=== PATIENT | female | born 2005 | race Caucasian/White ===

== ENCOUNTER 2024-06-24 01:13 | Inpatient (IN) ==
--- NOTE | 2024-06-24 01:39 | Emergency Department Note ---
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 Patient states when she takes deep breath it hurts on the right side. Patient denies vomiting, diarrhea, abdominal pain, urinary symptoms, sore throat. She states she is healthy and takes no active medicines. She has had left humeral surgery before for bone swelling. Patient was not able to elaborate on this. This was 6 years ago. Allergies Allergy/AdvReac Type Severity Reaction Status Date / Time No Known Allergies Allergy Unverified 06/24/24 05:35 Past Med/Surg History Problem List Pyelonephritis (Acute) Social History Smoking Status: Never smoker Feels Safe at Home: Yes Review of Systems A total of 10 systems reviewed and were otherwise negative Physical Exam Vital Signs Vital Signs - 24 hr 06/24/24 01:15 06/24/24 02:04 06/24/24 03:27 Temperature 37.7 C H Temperature Source Oral Pulse Rate 88 72 Pulse Rate [Left] 77 Pulse Rhythm Regular Pulse Rhythm [Left] Regular Pulse Strength [Left] Normal Respiratory Rate 16 16 Respiratory Effort / Characteristics Non-Labored Spontaneous Respiratory Depth Normal Respiratory Pattern Regular Blood Pressure 120/76 Blood Pressure [Right Arm] 114/66 Blood Pressure Mean 90 Blood Pressure Mean [Right Arm] 82 Blood Pressure Position [Right Arm] Sitting Pulse Oximetry 100 98 99 Oxygen Delivery Method Room Air Room Air Room Air Sepsis Recent Fever Within 48 Hours Yes Sepsis New/Unexplained Change in Mental Status No Sepsis Action Taken by Nursing No Action Required 06/24/24 04:00 06/24/24 05:17 Temperature 37.2 C Temperature Source Oral Pulse Rate Pulse Rate [Left] 51 L Pulse Rhythm Pulse Rhythm [Left] Regular Regular Pulse Strength [Left] Normal Normal Respiratory Rate 12 16 Respiratory Effort / Characteristics Non-Labored Spontaneous Non-Labored Spontaneous Respiratory Depth Normal Normal Respiratory Pattern Regular Regular Blood Pressure Blood Pressure [Right Arm] 106/59 L 99/63 L Blood Pressure Mean Blood Pressure Mean [Right Arm] 74 75 Blood Pressure Position [Right Arm] Lying Lying Pulse Oximetry 96 99 Oxygen Delivery Method Room Air Room Air Sepsis Recent Fever Within 48 Hours Sepsis New/Unexplained Change in Mental Status Sepsis Action Taken by Nursing VITALS: Vitals are noted on the nurse's note and reviewed by myself. Vital signs low-grade fever. GENERAL: Pleasant patient, in no acute distress, nondiaphoretic, well-developed well-nourished. SKIN: The skin was without rashes, erythema, edema, or bruising. There is no tenting of the skin. Capillary reflex less than 2 seconds. HEAD: Normocephalic atraumatic. EARS: External auditory canals clear EYES: Pupils equal round and reactive to light and accommodation. Conjunctivae without injection, sclerae without icterus. Extraocular movements intact. NOSE: Patent, no discharge. MOUTH: Mucous membranes moist. Pharynx without erythema or exudate. Uvula midline. Airway patent. Tongue does not deviate. NECK: Supple without nuchal rigidity. No lymphadenopathy. No thyromegaly. Cervical spine is nontender. No JVD. HEART: Regular rate and rhythm LUNGS: Clear to auscultation bilaterally without wheezes, rales or rhonchi. No retractions or accessory muscle use. ABDOMEN: Positive bowel sounds x 4. Normal tympanic percussion. Soft, nontender, without masses or organomegaly. Martinez sign negative. No guarding or rebound tenderness. No CVA tenderness MUSCULOSKELETAL: No muscle atrophy, erythema, or edema noted. No thoracic or lumbar tenderness. NEURO: Patient was alert and oriented to person place and time. Normal sensation to light and sharp touch. No focal neurological deficits. Course Administered Medications Sodium Chloride (Nss) 500 mls @ 999 mls/hr IV .Q31M ONE Stop: 06/24/24 05:45 Last Admin: 06/24/24 05:30 Dose: 999 mls/hr Documented By: [facility] Discontinued Medications Acetaminophen (Acetaminophen 500 Mg Tab) 1,000 mg PO NOW STA Stop: 06/24/24 01:37 Last Admin: 06/24/24 01:52 Dose: 1,000 mg Documented By: CARLOS Ceftriaxone Sodium (Rocephin) 1,000 mg in 50 mls @ 100 mls/hr IV NOW STA Stop: 06/24/24 02:44 Last Infusion: 06/24/24 03:25 Dose: Infused Documented By: Admin: 06/24/24 02:36 Dose: 100 mls/hr Documented By: CARLOS Sodium Chloride (Nss) 1,000 mls @ 999 mls/hr IV .Q1H1M ONE Stop: 06/24/24 05:33 Last Admin: 06/24/24 04:58 Dose: 999 mls/hr Documented By: CARLOS Piperacillin Sod/Tazobactam Sod (Zosyn) 4.5 gm in 100 mls @ 200 mls/hr IV NOW ONE; Protocol Stop: 06/24/24 05:12 Last Infusion: 06/24/24 05:27 Dose: Infused Documented By: Admin: 06/24/24 04:57 Dose: 200 mls/hr Documented By: CARLOS Ioversol (Optiray 320 100ml) 90 ml IV ONCE ONE Stop: 06/24/24 03:19 Last Admin: 06/24/24 03:19 Dose: 90 ml Documented By: HANNA Potassium Chloride (Potassium Chloride Crtab 20 Meq Tabcr) 40 meq PO NOW STA Stop: 06/24/24 04:13 Last Admin: 06/24/24 04:57 Dose: 40 meq Documented By: CARLOS Medical Decision Making Medical Records Attestation: I reviewed the patient's medical records. Home Medications Current Medication List: was personally reviewed by me Laboratory Data Attestation: I reviewed the patient's lab results. 06/24/24 03:13 06/24/24 03:13 Lab Results 06/24/24 06/24/24 06/24/24 Range/Units 01:54 02:28 03:13 WBC Cancelled 9.91 RBC Cancelled 3.51 L Hgb Cancelled 10.5 L Hct Cancelled 31.7 L MCV Cancelled 90.3 MCH Cancelled 29.9 MCHC Cancelled 33.1 RDW Std Deviation Cancelled 43.1 RDW Coeff of Deisy Cancelled 13.2 Plt Count Cancelled 286 MPV Cancelled 10.2 Immature Gran % (Auto) Cancelled 0.7 Neut % (Auto) Cancelled 72.1 Lymph % (Auto) Cancelled 16.4 Hood % (Auto) Cancelled 9.7 Eos % (Auto) Cancelled 0.8 Baso % (Auto) Cancelled 0.3 Neut # (Auto) Cancelled 7.14 H Lymph # (Auto) Cancelled 1.63 Hood # (Auto) Cancelled 0.96 H Eos # (Auto) Cancelled 0.08 Baso # (Auto) Cancelled 0.03 Immature Gran # (Auto) Cancelled 0.07 Absolute Nucleated RBC Cancelled Nucleated RBC % (auto) Cancelled Neutrophils % (Manual) Cancelled Band Neutrophils % Cancelled Lymphocytes % (Manual) Cancelled Prolymphocyte % Cancelled Reactive Lymphs % (Man) Cancelled Monocytes % (Manual) Cancelled Eosinophils % (Manual) Cancelled Basophils % (Manual) Cancelled Metamyelocytes % (Man) Cancelled Myelocytes % (Man) Cancelled Promyelocytes % (Man) Cancelled Blast Cells % (Manual) Cancelled Plasma Cell % (Manual) Cancelled Other Cells % Cancelled Nucleated RBC % Cancelled Neutrophils # (Manual) Cancelled Band Neutrophils # Cancelled Total Absolute Neuts Cancelled Lymphocytes # (Manual) Cancelled Prolymphocyte # Cancelled Reactive Lymphs # Cancelled Total Abs Lymphocytes Cancelled Monocytes # (Manual) Cancelled Eosinophils # (Manual) Cancelled Basophils # (Manual) Cancelled Metamyelocytes # (Man) Cancelled Myelocytes # (Manual) Cancelled Promyelocytes # (Man) Cancelled Blast Cells # (Man) Cancelled Plasma Cell # (Manual) Cancelled Other Cells # Cancelled Nucleated RBCs # (Man) Cancelled Hypersegmented Neuts Cancelled Hyposegmented Neuts Cancelled Hypogranular Neuts Cancelled Large Granular Lymphs Cancelled # Lrg Granular Lymphs Cancelled Hairy Cells Cancelled Smudge Cells Cancelled Toxic Granulation Cancelled Toxic Vacuolation Cancelled Dohle Bodies Cancelled Olivia Rods Cancelled Platelet Estimate Cancelled Hypogranular Platelets Cancelled Giant Platelets Cancelled Platelet Satelliting Cancelled RBC Morphology Cancelled Polychromasia Cancelled Hypochromasia Cancelled Poikilocytosis Cancelled Basophilic Stippling Cancelled Anisocytosis Cancelled Microcytosis Cancelled Macrocytosis Cancelled Spherocytes Cancelled Pappenheimer Bodies Cancelled Sickle Cells Cancelled Target Cells Cancelled Tear Drop Cells Cancelled Ovalocytes Cancelled Stomatocytes Cancelled Mantilla-[place] Bodies Cancelled Echinocytes Cancelled Acanthocytes (Spur) Cancelled Rouleaux Cancelled RBC Agglutinates Cancelled Schistocytes Cancelled Sezary Cell Cancelled Sodium 137 (136-145) mmol/L Potassium TNP 3.3 L Chloride 102 (98-107) mmol/L Carbon Dioxide 27 (21-32) mmol/L Anion Gap 8 (3-11) BUN 16 (6-23) mg/dl Creatinine 0.87 (0.6-1.2) mg/dl Est Cr Clr Drug Dosing 93.6 ml/min eGFR 98.37 BUN/Creatinine Ratio 18.4 (10-20) Glucose 99 (70-99(Fasting)) mg/dl Lactate (0.4-2.0) mmol/L Calcium 9.1 (8.6-10.3) mg/dl Total Bilirubin 0.2 (0.2-1.0) mg/dl AST TNP 14 ALT 17 (7-52) U/L Alkaline Phosphatase 64 (34-104) U/L Total Protein 7.9 (6.0-8.3) gm/dl Albumin 3.5 (3.4-5.0) gm/dl Globulin 4.4 H (2.5-4.0) gm/dl Albumin/Globulin Ratio 0.8 L (0.9-2) Lipase 32 (11-82) U/L Urine Color Yellow Urine Appearance Clear (Clear) Urine pH 6.5 (4.5-7.5) Ur Specific Adrian 1.015 (1.000-1.030) Urine Protein Trace H (Negative) Urine Glucose (UA) Negative (Negative) Urine Ketones Negative (Negative) Urine Blood Trace H (Negative) Urine Nitrite Negative (Negative) Urine Bilirubin Negative (Negative) Urine Urobilinogen Negative (Negative) Ur Leukocyte Esterase 1+ H (Negative) Urine WBC (Auto) 21-50 H (0-5) /hpf Urine RBC (Auto) 3-5 H (0-2) /hpf U Hyaline Cast (Auto) 0-2 (0-2) /lpf U Epithel Cells (Auto) 6-10 H (0-2) /hpf Urine Bacteria (Auto) 1+ H (None Seen) Urine Test Negative (Negative) Adenovirus (PCR) Not Detected (NotDetected) B. pertussis DNA (PCR) Not Detected (NotDetected) B.parapertussis DNA PCR Not Detected (NotDetected) C. pneumoniae DNA (PCR) Not Detected (NotDetected) Coronavirus OC43 (PCR) Not Detected (NotDetected) Coronavirus HKU1 (PCR) Not Detected (NotDetected) Coronavirus 229E (PCR) Not Detected (NotDetected) SARS-CoV-2 (PCR) Not Detected (NotDetected) Coronavirus NL63 (PCR) Not Detected (NotDetected) Human Metapneumovir PCR Not Detected (NotDetected) Influenza Type A (PCR) Not Detected (NotDetected) Influenza Type B (PCR) Not Detected (NotDetected) M. pneumoniae (PCR) Not Detected (NotDetected) Parainfluenza 1 (PCR) Not Detected (NotDetected) Parainfluenza 2 (PCR) Not Detected (NotDetected) Parainfluenza 3 (PCR) Not Detected (NotDetected) Parainfluenza 4 (PCR) Not Detected (NotDetected) RSV (PCR) Not Detected (NotDetected) Entero/Rhino (PCR) Not Detected (NotDetected) Blood Parasites ID Cancelled 06/24/24 Range/Units 04:44 WBC RBC Hgb Hct MCV MCH MCHC RDW Std Deviation RDW Coeff of Deisy Plt Count MPV Immature Gran % (Auto) Neut % (Auto) Lymph % (Auto) Hood % (Auto) Eos % (Auto) Baso % (Auto) Neut # (Auto) Lymph # (Auto) Hood # (Auto) Eos # (Auto) Baso # (Auto) Immature Gran # (Auto) Absolute Nucleated RBC Nucleated RBC % (auto) Neutrophils % (Manual) Band Neutrophils % Lymphocytes % (Manual) Prolymphocyte % Reactive Lymphs % (Man) Monocytes % (Manual) Eosinophils % (Manual) Basophils % (Manual) Metamyelocytes % (Man) Myelocytes % (Man) Promyelocytes % (Man) Blast Cells % (Manual) Plasma Cell % (Manual) Other Cells % Nucleated RBC % Neutrophils # (Manual) Band Neutrophils # Total Absolute Neuts Lymphocytes # (Manual) Prolymphocyte # Reactive Lymphs # Total Abs Lymphocytes Monocytes # (Manual) Eosinophils # (Manual) Basophils # (Manual) Metamyelocytes # (Man) Myelocytes # (Manual) Promyelocytes # (Man) Blast Cells # (Man) Plasma Cell # (Manual) Other Cells # Nucleated RBCs # (Man) Hypersegmented Neuts Hyposegmented Neuts Hypogranular Neuts Large Granular Lymphs # Lrg Granular Lymphs Hairy Cells Smudge Cells Toxic Granulation Toxic Vacuolation Dohle Bodies Olivia Rods Platelet Estimate Hypogranular Platelets Giant Platelets Platelet Satelliting RBC Morphology Polychromasia Hypochromasia Poikilocytosis Basophilic Stippling Anisocytosis Microcytosis Macrocytosis Spherocytes Pappenheimer Bodies Sickle Cells Target Cells Tear Drop Cells Ovalocytes Stomatocytes Mantilla-[place] Bodies Echinocytes Acanthocytes (Spur) Rouleaux RBC Agglutinates Schistocytes Sezary Cell Sodium (136-145) mmol/L Potassium Chloride (98-107) mmol/L Carbon Dioxide (21-32) mmol/L Anion Gap (3-11) BUN (6-23) mg/dl Creatinine (0.6-1.2) mg/dl Est Cr Clr Drug Dosing ml/min eGFR BUN/Creatinine Ratio (10-20) Glucose (70-99(Fasting)) mg/dl Lactate 0.6 (0.4-2.0) mmol/L Calcium (8.6-10.3) mg/dl Total Bilirubin (0.2-1.0) mg/dl AST ALT (7-52) U/L Alkaline Phosphatase (34-104) U/L Total Protein (6.0-8.3) gm/dl Albumin (3.4-5.0) gm/dl Globulin (2.5-4.0) gm/dl Albumin/Globulin Ratio (0.9-2) Lipase (11-82) U/L Urine Color Urine Appearance (Clear) Urine pH (4.5-7.5) Ur Specific Adrian (1.000-1.030) Urine Protein (Negative) Urine Glucose (UA) (Negative) Urine Ketones (Negative) Urine Blood (Negative) Urine Nitrite (Negative) Urine Bilirubin (Negative) Urine Urobilinogen (Negative) Ur Leukocyte Esterase (Negative) Urine WBC (Auto) (0-5) /hpf Urine RBC (Auto) (0-2) /hpf U Hyaline Cast (Auto) (0-2) /lpf U Epithel Cells (Auto) (0-2) /hpf Urine Bacteria (Auto) (None Seen) Urine Test (Negative) Adenovirus (PCR) (NotDetected) B. pertussis DNA (PCR) (NotDetected) B.parapertussis DNA PCR (NotDetected) C. pneumoniae DNA (PCR) (NotDetected) Coronavirus OC43 (PCR) (NotDetected) Coronavirus HKU1 (PCR) (NotDetected) Coronavirus 229E (PCR) (NotDetected) SARS-CoV-2 (PCR) (NotDetected) Coronavirus NL63 (PCR) (NotDetected) Human Metapneumovir PCR (NotDetected) Influenza Type A (PCR) (NotDetected) Influenza Type B (PCR) (NotDetected) M. pneumoniae (PCR) (NotDetected) Parainfluenza 1 (PCR) (NotDetected) Parainfluenza 2 (PCR) (NotDetected) Parainfluenza 3 (PCR) (NotDetected) Parainfluenza 4 (PCR) (NotDetected) RSV (PCR) (NotDetected) Entero/Rhino (PCR) (NotDetected) Blood Parasites ID Imaging Data Attestation: I personally reviewed and interpreted this imaging study as follows: Radiologist's Impression: Chest X-Ray 06/24/24 01:36 EXAM: XR chest 2V PA/lateral CLINICAL HISTORY: COUGH FEVER JMF TECHNIQUE: Radiograph of chest was acquired. COMPARISON: None. FINDINGS: Mild soft tissue haziness is noted in the right paracardiac region. Lateral radiograph demonstrates suspicious opacity in the lower zone. Rest of the lungs are clear and well-expanded with no pulmonary infiltrate. No pleural effusion is detected. The cardiomediastinal silhouette is within normal limits. No acute osseous abnormality. IMPRESSION: 1. Mild soft tissue haziness in the right paracardiac region, with corresponding suspicious opacity in the lower zone on the lateral radiograph - possibility of early infective etiology. CT scan of the chest is advised for confirmation if clinically indicated. Electronically signed by Clive Perez 06-24-2024 03:16 AM Abdomen/Pelvis CT 06/24/24 02:15 EXAM: CT abd pelvis IV con only CLINICAL HISTORY: uti, fever, right abd/flank pain 90 cc opti 320 TECHNIQUE: Contiguous axial images were obtained from the level of the diaphragm to the pubic symphysis following intravenous administration of contrast material. Coronal and sagittal reconstructions were likewise performed and indicated to increase the sensitivity for detecting clinically relevant pathology. If IV contrast material had not been administered, the likelihood of detecting abnormalities relevant to the patient's condition would have been substantially decreased. CT scan was performed according to ALARA (as low as reasonable achievable). COMPARISON: None. FINDINGS: Fibrotic bands noted in the visualized left lung base. The liver is enlarged, measuring 20.5 cm in craniocaudal span. No focal liver lesions are seen. There is no intra or extrahepatic biliary ductal dilatation. Hepatic vasculature is patent. The gallbladder is present. The spleen is enlarged, measuring 13.8 cm in craniocaudal span. The pancreas and adrenal glands are unremarkable. The right kidney shows few ill-defined hypoenhancing areas at the lower pole, largest measuring 1.5 x 1.3 cm. The left kidney shows a 5 mm calculus (mean attenuation 850 HU) in the middle calyx and a tiny renal concretion in the upper calyx. No hydronephrosis or perinephric fat stranding. The ureters are normal in caliber. The urinary bladder is normal in contour. A cystic lesion measuring 4.4 x 3.5 cm is noted in the left adnexa. Mild abdominopelvic ascites present. No focal or diffuse bowel wall thickening or evidence of bowel obstruction is seen. No adenopathy is seen. The aorta is normal in caliber. No aggressive appearing osseous lesions are identified. IMPRESSION: 1. Ill-defined hypoenhancing areas in right kidney lower pole, likely representing focal pyelonephritis/ evolving abscesses. 2. Hepatosplenomegaly. 3. Left renal calculus with tiny upper calyx concretion. 4. Left adnexal cystic lesion measuring 4.4 x 3.5 cm - ultrasound correlation recommended. 5. Mild abdominopelvic ascites. Electronically signed by Clive Perez 06-24-2024 04:19 AM MDM Narrative Prior records/ancillary studies reviewed. Triage Nursing notes reviewed. Additional history obtained from nursing. The patient's history was concerning for cold symptoms Differential diagnosis: Etiologies such as viral syndrome, pharyngitis, Covid, sepsis, bacteremia, bronchitis, allergies, otitis, pneumonia, influenza, as well as others were entertained. ER treatment provided: Tylenol was ordered Rocephin was ordered for UTI Labs and imaging were ordered as patient had a UTI and fever for rule out pyelonephritis/abscess Zosyn and daptomycin were ordered after CT results were reviewed. On reassessment the patient felt better. Diagnostics interpreted by me: The labs Independently Interpreted by myself revealed no worrisome leukocytosis, mild anemia, negative hCG, negative BioFire Urine was concerning for infection sent for culture Blood cultures pending neg lactic Imaging studies: Imaging was reviewed and read by radiology Consultation: Medicine was consulted and the case was discussed. Patient will be admitted to the medical service. This appears to be consistent with pyelonephritis with possible developing renal abscess with possible developing pneumonia. Blood cultures were ordered. Patient was already given Rocephin. Medicine was consulted and the case discussed. Patient will be admitted to the medical service. By the evaluation outlined above emergent etiologies such as otitis, meningitis, sepsis, bacteremia, as well as others were deemed relatively unlikely. The pt informed about the findings as listed above. All questions were answered and pleased with the treatment. The chart was completed utilizing [employer] Speech voice recognition software. Grammatical errors, random word insertions, pronoun errors, and incomplete sentences are an occassional consequence of this system due to software limitations, ambient noise, and hardware issues. Any formal questions or concerns about the content, text, or information contained within the body of this dictation should be directly addressed to the physician trading assistant for clarification. Impression & Plan Pyelonephritis Discharge Plan Visit Data Chief Complaint: Abdominal Pain Stated Complaint: ABD PAIN,FEVER FOR ABOUT A WEEK ED Provider: Margret Watt ED Midlevel Provider: Simin Penny Discharge Problem: Pyelonephritis Patient Disposition: Admitted As Inpatient Condition: Good Forms Stand Alone Forms: My [facility] Referrals Referrals: PCP,NO [Primary Care Provider] -
[2024-06-24] MEDS: ACETAMINOPHEN 500 MG TAB PO STA (01:52)
[2024-06-24 02:10] LABS: Pregnancy Test, Urine Negative (Negative)
[2024-06-24 02:11] LABS: Appearance Urine Clear (Clear); Bacteria Urine Automated 1+ (None Seen); Bilirubin Urine Negative (Negative); Blood Urine Trace (Negative); Cast Urine Automated 0-2 /lpf (0-2); Color Urine Yellow; Glucose Urine UA Negative (Negative); Ketones Urine Negative (Negative); Leukocyte Esterase Urine 1+ (Negative); Nitrite Urine Negative (Negative); Protein Urine Trace (Negative); Specific Gravity Urine 1.015 (1.000-1.030); Urobilinogen Urine Negative (Negative); WBC Urine Automated 21-50 /hpf (0-5); pH Urine 6.5 (4.5-7.5)
[2024-06-24] MEDS: cefTRIAXone SODIUM 1,000 MG/50 ML BAG IV STA (02:36)
[2024-06-24 02:56] LABS: Adenovirus PCR Not Detected (NotDetected); Bordetella parapertussis PCR Not Detected (NotDetected); Bordetella pertussis PCR Not Detected (NotDetected); Chlamydia pneumoniae PCR Not Detected (NotDetected); Coronavirus 229E PCR Not Detected (NotDetected); Coronavirus CoV-2 (COVID19)PCR Not Detected (NotDetected); Coronavirus HKU1 PCR Not Detected (NotDetected); Coronavirus NL63 PCR Not Detected (NotDetected); Coronavirus OC43PCR Not Detected (NotDetected); Human Metapneumovirus PCR Not Detected (NotDetected); Influenza A PCR Not Detected (NotDetected); Influenza B PCR Not Detected (NotDetected); Mycoplasma pneumoniae PCR Not Detected (NotDetected); Parainfluenza Virus 1 PCR Not Detected (NotDetected); Parainfluenza Virus 2 PCR Not Detected (NotDetected); Parainfluenza Virus 3 PCR Not Detected (NotDetected); Parainfluenza Virus 4 PCR Not Detected (NotDetected); Respiratory Syncytial VirusPCR Not Detected (NotDetected); Rhinovirus/Enterovirus PCR Not Detected (NotDetected)
[2024-06-24 02:57] LABS: Alanine Aminotransferase 17 U/L (7-52); Albumin Globulin Ratio 0.8 (0.9-2); Albumin Level 3.5 gm/dl (3.4-5.0); Alkaline Phosphatase 64 U/L (34-104); Anion Gap 8 (3-11); BUN Creatinine Ratio 18.4 (10-20); Bilirubin,Total 0.2 mg/dl (0.2-1.0); Blood Urea Nitrogen 16 mg/dl (6-23); Calcium 9.1 mg/dl (8.6-10.3); Carbon Dioxide 27 mmol/L (21-32); Chloride 102 mmol/L (98-107); Creatinine Clr Calc Pharmacy 93.6 ml/min; Globulin 4.4 gm/dl (2.5-4.0); Glucose 99 mg/dl (70-99(Fasting)); Lipase 32 U/L (11-82); Sodium 137 mmol/L (136-145); Total Protein 7.9 gm/dl (6.0-8.3)
--- NOTE | 2024-06-24 03:17 | XRay Report ---
EXAM: XR chest 2V PA/lateral CLINICAL HISTORY: COUGH FEVER JMF TECHNIQUE: Radiograph of chest was acquired. COMPARISON: None. FINDINGS: Mild soft tissue haziness is noted in the right paracardiac region. Lateral radiograph demonstrates suspicious opacity in the lower zone. Rest of the lungs are clear and well-expanded with no pulmonary infiltrate. No pleural effusion is detected. The cardiomediastinal silhouette is within normal limits. No acute osseous abnormality. IMPRESSION: 1. Mild soft tissue haziness in the right paracardiac region, with corresponding suspicious opacity in the lower zone on the lateral radiograph - possibility of early infective etiology. CT scan of the chest is advised for confirmation if clinically indicated. Electronically signed by Clive Perez 06-24-2024 03:16 AM
[2024-06-24] MEDS: OPTIRAY 320 100ml IV ONE (03:19)
[2024-06-24 03:35] LABS: Hematocrit (blood only) 31.7 % (37.0-47.0); Hemoglobin 10.5 g/dl (12.0-16.0); Mean Corpuscular Hemoglobin 29.9 pg (25.0-34.0); Mean Corpuscular Hgb Conc 33.1 g/dL (32.0-36.0); Mean Corpuscular Volume 90.3 fL (80.0-100.0); Mean Platelet Volume 10.2 fL (9.4-12.4); Platelet Count 286 K/uL (130-400); RDW Coefficient of Variation 13.2 % (11.5-14.5); RDW Standard Deviation 43.1 fL (36.4-46.3); Red Blood Count 3.51 M/uL (4.20-5.40); White Blood Count 9.91 K/ul (4.8-10.8)
[2024-06-24 03:52] LABS: Potassium 3.3 mmol/L (3.5-5.1)
[2024-06-24 04:14] LABS: Basophils # (auto) 0.03 K/uL (0.00-0.20); Basophils % (auto) 0.3 %; Eosinophils # (auto) 0.08 K/uL (0.00-0.50); Eosinophils % (auto) 0.8 %; Immature Granulocytes # (auto) 0.07 K/uL (0.01-0.20); Immature Granulocytes % (auto) 0.7 %; Lymphocytes # (auto) 1.63 K/uL (1.20-3.40); Lymphocytes % (auto) 16.4 %; Monocytes # (auto) 0.96 K/uL (0.11-0.59); Monocytes % (auto) 9.7 %; Neutrophils # (auto) 7.14 K/uL (1.40-6.50); Neutrophils % (auto) 72.1 %
--- NOTE | 2024-06-24 04:20 | CT Scan Report ---
EXAM: CT abd pelvis IV con only CLINICAL HISTORY: uti, fever, right abd/flank pain 90 cc opti 320 TECHNIQUE: Contiguous axial images were obtained from the level of the diaphragm to the pubic symphysis following intravenous administration of contrast material. Coronal and sagittal reconstructions were likewise performed and indicated to increase the sensitivity for detecting clinically relevant pathology. If IV contrast material had not been administered, the likelihood of detecting abnormalities relevant to the patient's condition would have been substantially decreased. CT scan was performed according to ALARA (as low as reasonable achievable). COMPARISON: None. FINDINGS: Fibrotic bands noted in the visualized left lung base. The liver is enlarged, measuring 20.5 cm in craniocaudal span. No focal liver lesions are seen. There is no intra or extrahepatic biliary ductal dilatation. Hepatic vasculature is patent. The gallbladder is present. The spleen is enlarged, measuring 13.8 cm in craniocaudal span. The pancreas and adrenal glands are unremarkable. The right kidney shows few ill-defined hypoenhancing areas at the lower pole, largest measuring 1.5 x 1.3 cm. The left kidney shows a 5 mm calculus (mean attenuation 850 HU) in the middle calyx and a tiny renal concretion in the upper calyx. No hydronephrosis or perinephric fat stranding. The ureters are normal in caliber. The urinary bladder is normal in contour. A cystic lesion measuring 4.4 x 3.5 cm is noted in the left adnexa. Mild abdominopelvic ascites present. No focal or diffuse bowel wall thickening or evidence of bowel obstruction is seen. No adenopathy is seen. The aorta is normal in caliber. No aggressive appearing osseous lesions are identified. IMPRESSION: 1. Ill-defined hypoenhancing areas in right kidney lower pole, likely representing focal pyelonephritis/ evolving abscesses. 2. Hepatosplenomegaly. 3. Left renal calculus with tiny upper calyx concretion. 4. Left adnexal cystic lesion measuring 4.4 x 3.5 cm - ultrasound correlation recommended. 5. Mild abdominopelvic ascites. Electronically signed by Clive Perez 06-24-2024 04:19 AM
[2024-06-24] MEDS: PIPERACILLIN/TAZOBACTAM 4.5 GM/100 ML BAG IV ONE (04:57)
[2024-06-24] MEDS: POTASSIUM CHLORIDE CRTAB 20 MEQ TABCR PO STA (04:57)
[2024-06-24] MEDS: SODIUM CHLORIDE 0.9% 1,000 ML IV ONE (04:58)
--- NOTE | 2024-06-24 05:23 | Urology Consultation ---
<Statement entered by Carlos Dorado MD - 06/24/24 07:36> I have discussed Ms. Fitzpatrick's case with Reg Herrera PA-C and agree with the above documentation. Urinalysis is suspicious for infection, urine and blood cultures are pending. CT scan shows a hypoenhancing area on the posterior of the right kidney which may represent pyelonephritis or developing abscess. To start, would recommend broad-spectrum antibiotics, narrowing as culture data becomes available. If she worsens clinically, fails to improve over the next couple days or has persistently positive blood cultures, would recommend repeating imaging to evaluate for formalization of renal abscess. If this were to occur, would recommend percutaneous aspiration/drainage. For now, no plan for surgical intervention from urology. -Carlos Dorado MD. Date of Consultation June 24, 2024 Assessment & Plan (1) Pyelonephritis: Patient is being admitted on the hospitalist service. From urologic perspective we recommend the following: It appears that the patient has pyelonephritis both clinically and on imaging She is initially been treated with antibiotics in the form of Rocephin, but I did discuss with the admitting hospitalist and he has escalating her antibiotics to daptomycin and Zosyn Appropriate cultures have been sent and he should be followed and antibiotics be tailored based on these results There is an area on the patient's right kidney that is concerning for potential developing abscess. The patient's clinical response to the antibiotics should be monitored. The patient continues to have fevers or clinically worsens over the next 2 to 3 days consideration should be given to reimaging her to see if there is any further development of this potential abscess and a determination be made if any intervention will be required The hospital service notes that they are pursuing additional evaluation for the adnexal cyst, ascites, and hepatosplenomegaly the patient is noted to have on CT scan. Will defer further evaluation of these findings to their discretion. History of Present Illness Reason for Consultation: Pyelonephritis with possible abscess History of Present Illness This is a 18-year-old female who presented to the emergency department secondary to fever as well as chills and back pain. Patient says that she has been having the symptoms for approximately 1 week. The patient notes that she has been having shakes and chills and feeling febrile (although she said she did not check her temperature). She notes that she is having bilateral flank pain which appears to be worse on the right. She denies any abdominal pain. She also denies any nausea or vomiting. She does not report any diarrhea. She denies any dysuria or hematuria. She denies any sore throat. She has not been placed on any antibiotics Since arrival hospital patient has had labs and imaging which independent reviewed. A chest x-ray showed some soft tissue haziness in the right pericardiac region. The interpreting radiologist could not exclude any infectious etiology. A CT scan abdomen pelvis was performed. This showed the patient had an area of the right kidney measuring 1.5 x 1.3 cm there was hypoenhancing with the inability to rule out a focal pyelonephritis or an evolving abscess. Patient was noted to have a left adnexal cyst measuring 4.4 x 3.5 cm. She was also noted to have hepatosplenomegaly and mild abdominal pelvic ascites. Labs include a CBC were white blood cell count platelet count were normal. Hemoglobin and hematocrit were 10.5 and 31.7. Chemistry profile showed sodium was normal with a potassium of 3.3. BUN and creatinine were normal. Urinalysis was negative for nitrites but she did have 1+ leukocyte Estrace and 21-50 white blood cells per high-power field. There is 1+ bacteria on the study and a test was negative. At the time of my interview the patient was resting comfortably in bed and she was in no distress. 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 She is unsure how she acquired this condition and says that she does not take routine/chronic antibiotics Concerning past surgical history she has had surgery on her left humerus Concerning social history she says she does not smoke Concerning family history she denies family history of coronary artery disease Patient History Social History Smoking Status: Never smoker Feels Safe at Home: Yes Review of Systems Review of Systems: All systems reviewed & are unremarkable except as noted in HPI & below Physical Exam Constitutional: WD/WN, vitals as above Eyes: no conjunctival abnormality ENMT: Ears: no hearing impairment Mouth: no oropharynx abnormality Patient had multiple ear piercings Neck: trachea midline Respiratory: normal respiratory effort; no respiratory distress and no labored breathing Cardiovascular: Rate/Rhythm: regular rate and regular rhythm Gastrointestinal (Abdomen): Abdomen is soft and nondistended. There is no pain with palpation at the time my exam. There is no rebound tenderness or guarding Musculoskeletal: No calf tenderness Skin: no rashes Neurologic: moves all extremities Psychiatric: A+Ox3, euthymic affect Genitourinary: Slight CVA tenderness was noted with percussion on the right. No CVA tenderness on the left Results & Data Vital Signs (Past 12 Hours) Vital Signs Temp Pulse Pulse Resp BP BP Pulse Ox 06/24/24 05:17 37.2 C 51 L 16 99/63 L 99 06/24/24 04:00 12 106/59 L 96 06/24/24 03:27 72 16 99 06/24/24 02:04 77 16 114/66 98 06/24/24 01:15 37.7 C H 88 120/76 100 O2 Del Method 06/24/24 05:17 Room Air 06/24/24 04:00 Room Air 06/24/24 03:27 Room Air 06/24/24 02:04 Room Air 06/24/24 01:15 Room Air PG Care Time/CCT Total # of Minutes Spent Total Time Spent with Patient: Total time spent is greater than 50% in coordination of care (as documented) at patient's floor/unit and/or counseling patient: Coding Level of Care Code 45146 IN/OBS CONSULT LVL 5,80M Diagnoses Pyelonephritis N12
[2024-06-24] MEDS: SODIUM CHLORIDE 0.9% 500 ML IV ONE (05:30)
--- NOTE | 2024-06-24 05:30 | History & Physical Report ---
Date of Service June 24, 2024 Assessment & Plan (1) Pyelonephritis: (2) Ascites: (3) Hepatosplenomegaly: (4) Adnexal cyst: (5) Hypokalemia: (6) Dehydration: Plan Right sided pyelonephritis- CT scan abdomen pelvis with question of focal pyelonephritis versus evolving abscesses Follow urine culture and sensitivity Daptomycin 350 mg IV daily Zosyn 4.5 g IV every 8 hours Status post 1 L normal saline bolus from the ED Give additional 1 L normal saline bolus now Maintenance fluids normal saline plus KCl 20 mEq at 100 mL/h x 1 L Consult urology Hepatosplenomegaly/ascites- Liver function test normal Order acute hepatitis panel Monospot with EBV follow-up Urine drug screen Follow-up blood culture and sensitivity 4.4 x 3.5 cm left adnexal cyst- Order ultrasound abdomen pelvis to further assess diagnoses above and adnexal lesion Consult infectious disease comment on all the above History of Present Illness Chief Complaint: The patient presents to the emergency department with complaint of fever, chills, generalized body aches, bilateral low back pain that began about 1 week ago, and worsened over the past few days. She reports that when she takes a deep breath, it hurts over her right posterior chest and right flank area. 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 She denies any history of urinary tract infections that required antibiotics. She denies any recent travels or sick exposures. She does not go hiking. She has not had any drug use. Allergies Allergy/AdvReac Type Severity Reaction Status Date / Time No Known Allergies Allergy Unverified 06/24/24 05:35 Past Med/Surg History Problem List (Updated 06/24/24 @ 06:43 by Davide Gutierrez MD) Dehydration Hypokalemia Ascites Adnexal cyst Hepatosplenomegaly Pyelonephritis (Acute) Social History Smoking Status: Never smoker Feels Safe at Home: Yes Review of Systems Review of Systems: The patient denies palpitations, shortness of breath, dyspnea on exertion, cough, lower extremity swelling, sore throat, fevers, chills, sweats, weight change, fatigue, nausea, vomiting, diarrhea , constipation, blood in urine or stool, dysuria, urinary frequency or urgency, lightheadedness, dizziness, headache, rash, abnormal bruising or bleeding, imbalance, focal or generalized weakness, numbness or tingling in arms or legs, neck pain, or night sweats. The review of systems is otherwise negative other than for that already noted above, and at least 10 systems have been reviewed. Physical Exam Physical Exam: The patient is awake, alert and oriented 3, well developed and well nourished, normocephalic and atraumatic, lying in bed and in no acute distress. HEENT--PERRL, EOMI, mucous membranes and oropharynx dry. Neck--supple. No JVD. No bruits. Thyroid normal, trachea midline, no adenopathy. Heart--normal S1 and S2. No murmurs, rubs or gallops. Lungs--clear bilaterally, no respiratory distress, no accessory muscle use. Abdomen--normal bowel sounds and soft. Nontender. Nondistended, no hernias or masses, no organomegaly. Extremities--No edema. Dermatologic--normal skin turgor, normal color, no abnormal lymph nodes, no rash. Neurologic--cranial nerves II through XII grossly intact. Rheumatologic--normal range of motion. Psychiatric--normal affect. Results & Data Results & Data Vital Signs (Past 12 Hours) Vital Signs Temp Pulse Pulse Resp BP BP Pulse Ox 06/24/24 05:17 37.2 C 51 L 16 99/63 L 99 06/24/24 04:00 12 106/59 L 96 06/24/24 03:27 72 16 99 06/24/24 02:04 77 16 114/66 98 06/24/24 01:15 37.7 C H 88 120/76 100 O2 Del Method 06/24/24 05:17 Room Air 06/24/24 04:00 Room Air 06/24/24 03:27 Room Air 06/24/24 02:04 Room Air 06/24/24 01:15 Room Air Laboratory Results Laboratory Results WBC 9.91 K/ul (4.8-10.8) 06/24/24 03:13 RBC 3.51 M/uL (4.20-5.40) L 06/24/24 03:13 Hgb 10.5 g/dl (12.0-16.0) L 06/24/24 03:13 Hct 31.7 % (37.0-47.0) L 06/24/24 03:13 MCV 90.3 fL (80.0-100.0) 06/24/24 03:13 MCH 29.9 pg (25.0-34.0) 06/24/24 03:13 MCHC 33.1 g/dL (32.0-36.0) 06/24/24 03:13 RDW Std Deviation 43.1 fL (36.4-46.3) 06/24/24 03:13 RDW Coeff of Deisy 13.2 % (11.5-14.5) 06/24/24 03:13 Plt Count 286 K/uL (130-400) 06/24/24 03:13 MPV 10.2 fL (9.4-12.4) 06/24/24 03:13 Immature Gran % (Auto) 0.7 % 06/24/24 03:13 Neut % (Auto) 72.1 % 06/24/24 03:13 Lymph % (Auto) 16.4 % 06/24/24 03:13 [place] % (Auto) 9.7 % 06/24/24 03:13 Eos % (Auto) 0.8 % 06/24/24 03:13 Baso % (Auto) 0.3 % 06/24/24 03:13 Neut # (Auto) 7.14 K/uL (1.40-6.50) H 06/24/24 03:13 Lymph # (Auto) 1.63 K/uL (1.20-3.40) 06/24/24 03:13 [place] # (Auto) 0.96 K/uL (0.11-0.59) H 06/24/24 03:13 Eos # (Auto) 0.08 K/uL (0.00-0.50) 06/24/24 03:13 Baso # (Auto) 0.03 K/uL (0.00-0.20) 06/24/24 03:13 Immature Gran # (Auto) 0.07 K/uL (0.01-0.20) 06/24/24 03:13 Absolute Nucleated RBC Cancelled 06/24/24 02:28 Nucleated RBC % (auto) Cancelled 06/24/24 02:28 Neutrophils % (Manual) Cancelled 06/24/24 02:28 Band Neutrophils % Cancelled 06/24/24 02:28 Lymphocytes % (Manual) Cancelled 06/24/24 02:28 Prolymphocyte % Cancelled 06/24/24 02:28 Reactive Lymphs % (Man) Cancelled 06/24/24 02:28 Monocytes % (Manual) Cancelled 06/24/24 02:28 Eosinophils % (Manual) Cancelled 06/24/24 02:28 Basophils % (Manual) Cancelled 06/24/24 02:28 Metamyelocytes % (Man) Cancelled 06/24/24 02:28 Myelocytes % (Man) Cancelled 06/24/24 02:28 Promyelocytes % (Man) Cancelled 06/24/24 02:28 Blast Cells % (Manual) Cancelled 06/24/24 02:28 Plasma Cell % (Manual) Cancelled 06/24/24 02:28 Other Cells % Cancelled 06/24/24 02:28 Nucleated RBC % Cancelled 06/24/24 02:28 Neutrophils # (Manual) Cancelled 06/24/24 02:28 Band Neutrophils # Cancelled 06/24/24 02:28 Total Absolute Neuts Cancelled 06/24/24 02:28 Lymphocytes # (Manual) Cancelled 06/24/24 02:28 Prolymphocyte # Cancelled 06/24/24 02:28 Reactive Lymphs # Cancelled 06/24/24 02:28 Total Abs Lymphocytes Cancelled 06/24/24 02:28 Monocytes # (Manual) Cancelled 06/24/24 02:28 Eosinophils # (Manual) Cancelled 06/24/24 02:28 Basophils # (Manual) Cancelled 06/24/24 02:28 Metamyelocytes # (Man) Cancelled 06/24/24 02:28 Myelocytes # (Manual) Cancelled 06/24/24 02:28 Promyelocytes # (Man) Cancelled 06/24/24 02:28 Blast Cells # (Man) Cancelled 06/24/24 02:28 Plasma Cell # (Manual) Cancelled 06/24/24 02:28 Other Cells # Cancelled 06/24/24 02:28 Nucleated RBCs # (Man) Cancelled 06/24/24 02:28 Hypersegmented Neuts Cancelled 06/24/24 02:28 Hyposegmented Neuts Cancelled 06/24/24 02:28 Hypogranular Neuts Cancelled 06/24/24 02:28 Large Granular Lymphs Cancelled 06/24/24 02:28 # Lrg Granular Lymphs Cancelled 06/24/24 02:28 Hairy Cells Cancelled 06/24/24 02:28 Smudge Cells Cancelled 06/24/24 02:28 Toxic Granulation Cancelled 06/24/24 02:28 Toxic Vacuolation Cancelled 06/24/24 02:28 Dohle Bodies Cancelled 06/24/24 02:28 Olivia Rods Cancelled 06/24/24 02:28 Platelet Estimate Cancelled 06/24/24 02:28 Hypogranular Platelets Cancelled 06/24/24 02:28 Giant Platelets Cancelled 06/24/24 02:28 Platelet Satelliting Cancelled 06/24/24 02:28 RBC Morphology Cancelled 06/24/24 02:28 Polychromasia Cancelled 06/24/24 02:28 Hypochromasia Cancelled 06/24/24 02:28 Poikilocytosis Cancelled 06/24/24 02:28 Basophilic Stippling Cancelled 06/24/24 02:28 Anisocytosis Cancelled 06/24/24 02:28 Microcytosis Cancelled 06/24/24 02:28 Macrocytosis Cancelled 06/24/24 02:28 Spherocytes Cancelled 06/24/24 02:28 Pappenheimer Bodies Cancelled 06/24/24 02:28 Sickle Cells Cancelled 06/24/24 02:28 Target Cells Cancelled 06/24/24 02:28 Tear Drop Cells Cancelled 06/24/24 02:28 Ovalocytes Cancelled 06/24/24 02:28 Stomatocytes Cancelled 06/24/24 02:28 Mantilla-Muscoda Bodies Cancelled 06/24/24 02:28 Echinocytes Cancelled 06/24/24 02:28 Acanthocytes (Spur) Cancelled 06/24/24 02:28 Rouleaux Cancelled 06/24/24 02:28 RBC Agglutinates Cancelled 06/24/24 02:28 Schistocytes Cancelled 06/24/24 02:28 Sezary Cell Cancelled 06/24/24 02:28 Sodium 137 mmol/L (136-145) 06/24/24 02:28 Potassium 3.3 mmol/L (3.5-5.1) L 06/24/24 03:13 Chloride 102 mmol/L (98-107) 06/24/24 02:28 Carbon Dioxide 27 mmol/L (21-32) 06/24/24 02:28 Anion Gap 8 (3-11) 06/24/24 02:28 BUN 16 mg/dl (6-23) 06/24/24 02:28 Creatinine 0.87 mg/dl (0.6-1.2) 06/24/24 02:28 Est Cr Clr Drug Dosing 93.6 ml/min 06/24/24 02:28 eGFR 98.37 06/24/24 02:28 BUN/Creatinine Ratio 18.4 (10-20) 06/24/24 02:28 Glucose 99 mg/dl (70-99(Fasting)) 06/24/24 02:28 Lactate 0.6 mmol/L (0.4-2.0) 06/24/24 04:44 Calcium 9.1 mg/dl (8.6-10.3) 06/24/24 02:28 Total Bilirubin 0.2 mg/dl (0.2-1.0) 06/24/24 02:28 AST 14 U/L (13-39) 06/24/24 03:13 ALT 17 U/L (7-52) 06/24/24 02:28 Alkaline Phosphatase 64 U/L (34-104) 06/24/24 02:28 Total Protein 7.9 gm/dl (6.0-8.3) 06/24/24 02:28 Albumin 3.5 gm/dl (3.4-5.0) 06/24/24 02:28 Globulin 4.4 gm/dl (2.5-4.0) H 06/24/24 02:28 Albumin/Globulin Ratio 0.8 (0.9-2) L 06/24/24 02:28 Lipase 32 U/L (11-82) 06/24/24 02:28 Urine Color Yellow 06/24/24 01:54 Urine Appearance Clear (Clear) 06/24/24 01:54 Urine pH 6.5 (4.5-7.5) 06/24/24 01:54 Ur Specific [place] 1.015 (1.000-1.030) 06/24/24 01:54 Urine Protein Trace (Negative) H 06/24/24 01:54 Urine Glucose (UA) Negative (Negative) 06/24/24 01:54 Urine Ketones Negative (Negative) 06/24/24 01:54 Urine Blood Trace (Negative) H 06/24/24 01:54 Urine Nitrite Negative (Negative) 06/24/24 01:54 Urine Bilirubin Negative (Negative) 06/24/24 01:54 Urine Urobilinogen Negative (Negative) 06/24/24 01:54 Ur Leukocyte Esterase 1+ (Negative) H 06/24/24 01:54 Urine WBC (Auto) 21-50 /hpf (0-5) H 06/24/24 01:54 Urine RBC (Auto) 3-5 /hpf (0-2) H 06/24/24 01:54 U Hyaline Cast (Auto) 0-2 /lpf (0-2) 06/24/24 01:54 U Epithel Cells (Auto) 6-10 /hpf (0-2) H 06/24/24 01:54 Urine Bacteria (Auto) 1+ (None Seen) H 06/24/24 01:54 Urine Test Negative (Negative) 06/24/24 01:54 Adenovirus (PCR) Not Detected (NotDetected) 06/24/24 01:54 B. pertussis DNA (PCR) Not Detected (NotDetected) 06/24/24 01:54 B.parapertussis DNA PCR Not Detected (NotDetected) 06/24/24 01:54 C. pneumoniae DNA (PCR) Not Detected (NotDetected) 06/24/24 01:54 Coronavirus OC43 (PCR) Not Detected (NotDetected) 06/24/24 01:54 Coronavirus HKU1 (PCR) Not Detected (NotDetected) 06/24/24 01:54 Coronavirus 229E (PCR) Not Detected (NotDetected) 06/24/24 01:54 SARS-CoV-2 (PCR) Not Detected (NotDetected) 06/24/24 01:54 Coronavirus NL63 (PCR) Not Detected (NotDetected) 06/24/24 01:54 Monoscreen Negative (Negative) 06/24/24 03:13 Human Metapneumovir PCR Not Detected (NotDetected) 06/24/24 01:54 Influenza Type A (PCR) Not Detected (NotDetected) 06/24/24 01:54 Influenza Type B (PCR) Not Detected (NotDetected) 06/24/24 01:54 M. pneumoniae (PCR) Not Detected (NotDetected) 06/24/24 01:54 Parainfluenza 1 (PCR) Not Detected (NotDetected) 06/24/24 01:54 Parainfluenza 2 (PCR) Not Detected (NotDetected) 06/24/24 01:54 Parainfluenza 3 (PCR) Not Detected (NotDetected) 06/24/24 01:54 Parainfluenza 4 (PCR) Not Detected (NotDetected) 06/24/24 01:54 RSV (PCR) Not Detected (NotDetected) 06/24/24 01:54 Entero/Rhino (PCR) Not Detected (NotDetected) 06/24/24 01:54 Blood Parasites ID Cancelled 06/24/24 02:28 Impressions Chest X-Ray 06/24/24 01:36 EXAM: XR chest 2V PA/lateral CLINICAL HISTORY: COUGH FEVER JMF TECHNIQUE: Radiograph of chest was acquired. COMPARISON: None. FINDINGS: Mild soft tissue haziness is noted in the right paracardiac region. Lateral radiograph demonstrates suspicious opacity in the lower zone. Rest of the lungs are clear and well-expanded with no pulmonary infiltrate. No pleural effusion is detected. The cardiomediastinal silhouette is within normal limits. No acute osseous abnormality. IMPRESSION: 1. Mild soft tissue haziness in the right paracardiac region, with corresponding suspicious opacity in the lower zone on the lateral radiograph - possibility of early infective etiology. CT scan of the chest is advised for confirmation if clinically indicated. Electronically signed by Clive Perez 06-24-2024 03:16 AM Abdomen/Pelvis CT 06/24/24 02:15 EXAM: CT abd pelvis IV con only CLINICAL HISTORY: uti, fever, right abd/flank pain 90 cc opti 320 TECHNIQUE: Contiguous axial images were obtained from the level of the diaphragm to the pubic symphysis following intravenous administration of contrast material. Coronal and sagittal reconstructions were likewise performed and indicated to increase the sensitivity for detecting clinically relevant pathology. If IV contrast material had not been administered, the likelihood of detecting abnormalities relevant to the patient's condition would have been substantially decreased. CT scan was performed according to ALARA (as low as reasonable achievable). COMPARISON: None. FINDINGS: Fibrotic bands noted in the visualized left lung base. The liver is enlarged, measuring 20.5 cm in craniocaudal span. No focal liver lesions are seen. There is no intra or extrahepatic biliary ductal dilatation. Hepatic vasculature is patent. The gallbladder is present. The spleen is enlarged, measuring 13.8 cm in craniocaudal span. The pancreas and adrenal glands are unremarkable. The right kidney shows few ill-defined hypoenhancing areas at the lower pole, largest measuring 1.5 x 1.3 cm. The left kidney shows a 5 mm calculus (mean attenuation 850 HU) in the middle calyx and a tiny renal concretion in the upper calyx. No hydronephrosis or perinephric fat stranding. The ureters are normal in caliber. The urinary bladder is normal in contour. A cystic lesion measuring 4.4 x 3.5 cm is noted in the left adnexa. Mild abdominopelvic ascites present. No focal or diffuse bowel wall thickening or evidence of bowel obstruction is seen. No adenopathy is seen. The aorta is normal in caliber. No aggressive appearing osseous lesions are identified. IMPRESSION: 1. Ill-defined hypoenhancing areas in right kidney lower pole, likely representing focal pyelonephritis/ evolving abscesses. 2. Hepatosplenomegaly. 3. Left renal calculus with tiny upper calyx concretion. 4. Left adnexal cystic lesion measuring 4.4 x 3.5 cm - ultrasound correlation recommended. 5. Mild abdominopelvic ascites. Electronically signed by Clive Perez 06-24-2024 04:19 AM Code Status & VTE Plan Code Status Full code VTE Prophylaxis Plan VTE Prophylaxis will be ordered: Yes PG Care Time/CCT Total # of Minutes Spent Total Time Spent with Patient: Total time spent is greater than 50% in coordination of care (as documented) at patient's floor/unit and/or counseling patient: Coding Level of Care Code 95857 INT INP/OBS CARE 3/75MIN Diagnoses Pyelonephritis N12 Ascites R18.8 Hepatosplenomegaly R16.2 Adnexal cyst N94.9 Hypokalemia E87.6 Dehydration E86.0
[2024-06-24] MEDS: DAPTOmycin 350 MG in SYRINGE 0 ML IV ONE (06:19)
[2024-06-24] MEDS ORDERED: Nursing to Pharmacy Communication SCH (07:00)
--- NOTE | 2024-06-24 07:02 | Ultrasound Report ---
EXAM: US pelvic complete CLINICAL HISTORY: LMP: Early June unknown exact date Uterus: 7 x 3.8 x 4.3cm Free fluid seen in posterior cul-de-sac Endo: .5cm Right Ovary: 4.1 x 3 x 2.3cm Flow seen Left Ovary: 6.4 x 5.1 x 2.8cm Flow seen Cyst: 4.3 x 3.8 x 2.8cm TECHNIQUE: Ultrasound examination of the pelvis was performed in real time and duplex using trans-abdominal approaches. The vascular flow was evaluated using color flow and with a spectral pattern of the flow waveform. COMPARISON: 06/24/2024 CT. FINDINGS: Uterus: Uterine size and morphology: The anteverted uterus measures 7X3.7X 4.8 cm and shows homogeneous myometrium echotexture. No evidence of uterine masses, fibroids, or endometrial thickening. Endometrial stripe thickness: Measures 0.4 cm.. Ovaries: Right ovary size: Measures 3X2.3X 4.1 cm Left ovary size: Measures 2.7 X6.4X 5.06 cm . Left ovary shows a thin-walled unilocular cyst measuring 4.2 X2.7X 3.7 cm. No loculi/debris seen. Adnexa: Adnexal structures appears normal. Bladder: Urinary bladder: No evidence of bladder wall thickening, masses, or intraluminal stones. Additional Findings: Mild free fluid seen in the cul-de-sac. IMPRESSION: 1. Left ovarian simple cyst. 2. Mild free fluid in the cul-de-sac. 3. Comparing the CT done dated 06/24/2024 findings remain stable. RECOMMENDATIONS: Clinical correlation with symptoms and further evaluation as indicated. Electronically signed by Kee Torres 06-24-2024 07:02 AM
[2024-06-24 07:29] LABS: Amphetamines+Metham, Urine Neg (Neg); Barbiturates, Urine Neg (Neg); Benzodiazepine, Urine Neg (Neg); Cocaine, Urine Neg (Neg); Fentanyl, Urine Neg (Neg); MDMA (Ecstacy), Urine Neg (Neg); Marijuana, Urine Neg (Neg); Methadone, Urine Neg (Neg); Opiate, Urine Neg (Neg); Phencyclidine, Urine Neg (Neg)
[2024-06-24] MEDS ORDERED: PIPERACILLIN/TAZOBACTAM 4.5 GM/100 ML BAG IV SCH (09:09)
[2024-06-24] MEDS ORDERED: NSS + 20MEQ KCL 20 MEQ/1,000 ML BAG IV SCH (09:09)
[2024-06-24] MEDS: NSS + 20MEQ KCL 20 MEQ/1,000 ML BAG IV SCH (09:22)
[2024-06-24] MEDS: PIPERACILLIN/TAZOBACTAM 4.5 GM/100 ML BAG IV SCH (09:22)
[2024-06-24 10:00] LABS: Hep B Surface Ag with confirm Negative (Negative)
[2024-06-24 10:05] LABS: Hep C Ab Rflx HepCQuant RNA Negative (Negative)
[2024-06-24] MEDS: cefTRIAXone SODIUM 1,000 MG MINI-B 50ML IV ONE (11:02)
[2024-06-24] MEDS: Patient's ALLERGY Info needs ENTERED STA (12:16)
--- NOTE | 2024-06-24 14:36 | Infectious Disease Consult ---
Date of Consultation June 24, 2024 Assessment & Plan (1) Pyelonephritis: (2) Hepatosplenomegaly: (3) Adnexal cyst: Plan ID Problem List: 1. R-sided pyelonephritis with possible evolving abscess on 06/24 CT A/P 2. Hepatosplenomegaly 3. Fevers, chills, back pain 4. Mild ascites 5. L adnexal cyst, per 06/24 is ovarian simple cyst Impression: Sena Fitzpatrick is a 18-year-old woman and [employer] student with reported ?chronic osteomyelitis of the L arm and L humerus surgery 6 years ago, who presents to [facility] on 06/24 with 1 week of fevers, chills, and back pain. The patient reports she has been having 1 week of subjective fevers, chills/shakes, and bilateral flank pain R > L. She also reports lower R-sided abdominal pain especially with exhaling and certain movements. No reported dysuria/hematuria, no n/v/d. No abx prior to hospitalization. Upon presentation to the ED, VS T37.7 HR 88 BP 120/76 SpO2 100% on RA. Labs showed WBC 9.91 Hgb 10.5 plt 286 Cr 0.87 AST 14 ALT 17 tbili 0.2 lipase 32. UA showed 1+ LE, neg nitrite, 21-50 WBC, 3-5 RBC, 6-10 squams, 1+ bacteria. test negative. Respiratory pathogen panel neg. She was started on daptomycin + ceftriaxone, then changed to daptomycin + pip-tazo. 06/24 CXR showed mild R paracardiac haziness/opacity possible early infection. 06/24 CT A/P showed ill-defined hypoenhancing regions of R kidney lower pole c/f pyelonephritis/abscess; hepatosplenomegaly, L renal calculus; L adnexal cystic lesion 4.4 x 3.5 cm, mild abdominopelvic ascites. Per 06/24 pelvic US, the adnexal lesion appears to be a L ovarian simple cyst. Urology was consulted and will monitor her R kidney for developing abscess (with plan for reimaging in the next 2-3 days to reevaluate). The patient reports a history of ?chronic osteomyelitis of the L arm, and is unsure how she developed this condition and reports she does not take chronic antibiotics. Does not recall any recent sick contacts, no recent travel, no hiking, no reported recreational drug use. At the time of evaluation, the patient reports she feels overall better, still with some R-sided back and abdominal pain. She recalls a possible UTI remotely (>1 year prior) but none recently. Discussion Pt appears to have R-sided pyelonephritis in the setting of 1 week of fevers, chills, and back pain. CT imaging suggestive of evolving abscess. UCx still pending but pt without reported history of MDRs. Would treat with ceftriaxone for now while awaiting Cx; if clinical worsening in the interim may consider broadening to cefepime. Appreciate urology following, planning on repeat CT A/P to reassess abscess formation in the next few days. If abscess formation, will need to follow up on possible urological intervention, vs. extending course of abx treatment Hepatosplenomegaly is of unclear etiology but may reflect preceding/concomitant viral illness. Monoscreen neg but will follow EBV serologies and CMV testing. Respiratory pathogen panel neg. Pt does not recall any preceding viral symptoms. Also note pts ovarian cyst appears to be a simple cyst and would continue to monitor. Note that pt is declining STI screening (GC/CT) at this time as she is sexually monogamous with her partner. Recommendations: - Change back to ceftriaxone 2g IV q24h, continue while awaiting UCx/BCx ---- If clinical worsening while on ceftriaxone, may consider broadening to cefepime - Appreciate urology following, planning on repeat CT A/P to reassess abscess formation in the next few days. If abscess formation, will need to follow up on possible urological intervention, vs. extending course of abx treatment - Final abx selection and duration pending cultures, clinical improvement, and radiographic improvement. PO options may be available. - F/u 06/24 UCx, BCx - Send HIV, Syphilis Ab, CMV Ab/PCR - F/u EBV Ab ID will continue to follow, but does not monitor the chart or round over the weekend; covering physician can be contacted at [phone] ([facility] call center) for telephonic consultation if needed. Dr. Alison Lazaro will resume care of the ID service on Thursday. Ashley Patel MD, S Infectious Diseases [facility] ID Connect direct line: [phone] Consultation Information Consultation was provided via telemedicine using two-way real-time interactive telecommunication between the patient and the telemedicine provider. For the duration of the visit, the provider was performing the assessment from a different facility than the patient. This includesuse of bluetooth stethoscope forauscultationperformed by the telepresenter that the telemedicine provider can hear if described in the physical exam. Voice Network Administrator contact information: Please call [facility] Connect Call Center . 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 The patient reports she has been having 1 week of subjective fevers, chills/brent es, and bilateral flank pain R > L. She also reports lower R-sided abdominal pain especially with exhaling and certain movements. No reported dysuria/hematuria, no n/v/d. No abx prior to hospitalization. Upon presentation to the ED, VS T37.7 HR 88 BP 120/76 SpO2 100% on RA. Labs showed WBC 9.91 Hgb 10.5 plt 286 Cr 0.87 AST 14 ALT 17 tbili 0.2 lipase 32. UA showed 1+ LE, neg nitrite, 21-50 WBC, 3-5 RBC, 6-10 squams, 1+ bacteria. test negative. Respiratory pathogen panel neg. She was started on daptomycin + ceftriaxone, then changed to daptomycin + pip-tazo. 06/24 CXR showed mild R paracardiac haziness/opacity possible early infection. 06/24 CT A/P showed ill-defined hypoenhancing regions of R kidney lower pole c/f pyelonephritis/abscess; hepatosplenomegaly, L renal calculus; L adnexal cystic lesion 4.4 x 3.5 cm, mild abdominopelvic ascites. Per 06/24 pelvic US, the adnexal lesion appears to be a L ovarian simple cyst. Urology was consulted and will monitor her R kidney for developing abscess (with plan for reimaging in the next 2-3 days to reevaluate). The patient reports a history of ?chronic osteomyelitis of the L arm, and is unsure how she developed this condition and reports she does not take chronic antibiotics. Does not recall any recent sick contacts, no recent travel, no hiking, no reported recreational drug use. At the time of evaluation, the patient reports she feels overall better, still with some R-sided back and abdominal pain. She recalls a possible UTI remotely (>1 year prior) but none recently. Allergies Allergy/AdvReac Type Severity Reaction Status Date / Time No Known Allergies Allergy Unverified 06/24/24 05:35 Home Medications Medication Instructions Recorded Confirmed Type No Known Home Medications 06/24/24 06/24/24 History Patient History Social History Smoking Status: Never smoker Hx Alcohol Use: Yes Alcohol type: beer Hx Substance Use: No Preferred Language: Thai Communication Ability: Effective Patrol Inspector Required: No Beliefs That Will Affect Care: None Current Living Situation: Alone Current Living Situation Comment: [employer] student Feels Safe at Home: Yes Safety Concerns: Feels Safe At This Time Assistive Devices: None Physical Exam Physical Exam: Exam obtained with aid of in-person telepresenter. General: Well-appearing, no acute distress HEENT: Conjunctivae non-injected, sclerae anicteric, MMM, OP clear. Resp: Respirations nonlabored. Abd: R sided tenderness to palpation in lower abdomen : R-sided flank tenderness Ext: No joint warmth or effusions noted. Skin: No rashes or lesions. Neuro: Alert & interactive. Grossly non-focal. Psych: Pleasant, appropriate. Results & Data Vital Signs (Past 12 Hours) Vital Signs Temp Pulse Pulse Resp BP BP Pulse Ox 06/24/24 14:19 50 L 06/24/24 12:20 36.8 C 57 L 16 102/60 99 06/24/24 11:55 70 16 101/65 98 06/24/24 11:16 70 16 101/65 99 06/24/24 09:33 98 06/24/24 09:32 78 16 99/54 L 97 06/24/24 07:59 70 16 99/54 L 96 06/24/24 06:30 52 L 16 98/46 L 99 06/24/24 05:17 37.2 C 51 L 16 99/63 L 99 06/24/24 04:00 12 106/59 L 96 06/24/24 03:27 72 16 99 O2 Del Method 06/24/24 14:19 06/24/24 12:20 Room Air 06/24/24 11:55 Room Air 06/24/24 11:16 Room Air 06/24/24 09:33 Room Air 06/24/24 09:32 Room Air 06/24/24 07:59 Room Air 06/24/24 06:30 Room Air 06/24/24 05:17 Room Air 06/24/24 04:00 Room Air 06/24/24 03:27 Room Air Diagnostic Findings Diagnostics: 06/24 pelvic US 1. Left ovarian simple cyst. 2. Mild free fluid in the cul-de-sac. 3. Comparing the CT done dated 06/24/2024 findings remain stable. 06/24 CT A/P 1. Ill-defined hypoenhancing areas in right kidney lower pole, likely representing focal pyelonephritis/ evolving abscesses. 2. Hepatosplenomegaly. 3. Left renal calculus with tiny upper calyx concretion. 4. Left adnexal cystic lesion measuring 4.4 x 3.5 cm - ultrasound correlation recommended. 4. Mild abdominopelvic ascites. 06/24 CXR 1. Mild soft tissue haziness in the right paracardiac region, with corresponding suspicious opacity in the lower zone on the lateral radiograph - possibility of early infective etiology. CT scan of the chest is advised for confirmation if clinically indicated. Micro Data: 06/24 respiratory pathogen panel: neg 06/24 EBV Ab: PEND 06/24 monoscreen: neg 06/24 acute hep panel: PEND 06/24 BCx x2: PEND 06/24 UCx: PEND Antibiotic Summary: ceftriaxone (06/23 present) prior daptomycin (06/23) pip-tazo (06/23 06/24)
[2024-06-25] MEDS ORDERED: DAPTOmycin 350 MG in SYRINGE 0 ML IV SCH (05:00)
[2024-06-25] MEDS ORDERED: DAPTOmycin 225 MG in SYRINGE 0 ML IV SCH (05:30)
[2024-06-25 07:31] LABS: Partial Thromboplastin Ratio 0.9; Partial Thromboplastin Time 24 Seconds (21-31); Prothrombin Time 10.6 Seconds (9.0-12.0)
[2024-06-25 07:55] LABS: Albumin Globulin Ratio 0.8 (0.9-2); BUN Creatinine Ratio 14.1 (10-20); Bilirubin,Total 0.2 mg/dl (0.2-1.0); Calcium 8.5 mg/dl (8.6-10.3); Creatinine Clr Calc Pharmacy 95.8 ml/min; Magnesium 2.2 mg/dl (1.7-2.4); Potassium 4.4 mmol/L (3.5-5.1)
[2024-06-25 08:21] LABS: Basophils # (auto) 0.04 K/uL (0.00-0.20); Basophils % (auto) 0.6 %; Eosinophils # (auto) 0.12 K/uL (0.00-0.50); Eosinophils % (auto) 1.7 %; Hematocrit (blood only) 35.6 % (37.0-47.0); Immature Granulocytes # (auto) 0.09 K/uL (0.01-0.20); Immature Granulocytes % (auto) 1.3 %; Lymphocytes # (auto) 1.89 K/uL (1.20-3.40); Mean Corpuscular Hemoglobin 30.1 pg (25.0-34.0); Mean Corpuscular Hgb Conc 30.9 g/dL (32.0-36.0); Mean Corpuscular Volume 97.3 fL (80.0-100.0); Mean Platelet Volume 10.5 fL (9.4-12.4); Monocytes # (auto) 0.52 K/uL (0.11-0.59); Monocytes % (auto) 7.4 %; Neutrophils # (auto) 4.34 K/uL (1.40-6.50); Platelet Count 259 K/uL (130-400); RDW Coefficient of Variation 13.3 % (11.5-14.5); RDW Standard Deviation 47.9 fL (36.4-46.3); Red Blood Count 3.66 M/uL (4.20-5.40)
--- NOTE | 2024-06-25 08:57 | Urology Progress Note ---
Date of Service June 25, 2024 Assessment & Plan (1) Pyelonephritis: Plan: Overall, she seems to be doing appropriately on ceftriaxone. Would continue broad-spectrum antibiotics and narrow as culture data becomes available. If she were to have persistently positive blood cultures or to start to look worse clinically, would repeat CT scan to evaluate for interval development of renal abscess. No plan for surgical intervention at this time. Admission and Anticipated Discharge Date Admission Date: June 24, 2024 Subjective Feeling okay this morning, denies any fevers or chills Flank pain stable from yesterday Blood cultures negative at 24 hours, urine culture still pending. Remains on ceftriaxone. Tolerating a diet with no nausea or vomiting. No leukocytosis this morning (WBC 7.00) Physical Exam Physical Exam: Seated comfortably in bed, NAD Results & Data Vital Signs (Past 12 Hours) Vital Signs Temp Pulse Pulse Resp BP Pulse Ox O2 Del Method 06/25/24 07:54 37.1 C 70 16 110/80 96 Room Air 06/25/24 07:16 56 L 06/25/24 03:58 36.7 C 58 L 18 108/69 96 Room Air 06/24/24 23:55 36.9 C 74 18 104/67 96 Room Air 06/24/24 21:50 63 PG Care Time/CCT Total # of Minutes Spent Total Time Spent with Patient: Total time spent is greater than 50% in coordination of care (as documented) at patient's floor/unit and/or counseling patient: Coding Level of Care Code 53393 SUB INP/OBS CARE 08/27MIN Diagnoses Pyelonephritis N12
[2024-06-25] MEDS: cefTRIAXone SODIUM 2,000 MG/50 ML BAG IV SCH (09:42)
--- NOTE | 2024-06-25 11:01 | Hospitalist Progress Note ---
Date of Service June 25, 2024 Assessment & Plan (1) Pyelonephritis: Plan: right-sided 2nd to e.coli based on urine cx results cont rocephin tylenol/toradol prn pain blood cx's neg to date clinically doing well & stable appreciate urology assistance (2) Ascites: Plan: mild on CT nothing apparent clinically on physical exam likely reactive (3) Hepatosplenomegaly: Plan: etiology uncertain most likely is due to a viral process EBV, CMV, etc are pending I cannot feel any enlarged spleen or liver on exam today f/u on viral serologies (4) Adnexal cyst: Plan: left pelvic u/s shows simple cyst features f/u as outpatient (5) Hypokalemia: Plan: replaced resolved (6) Dehydration: Plan: resolved stop IV fluids Plan home tomorrow if blood cx's negative? can d/c telemetry Admission and Anticipated Discharge Date Admission Date: June 24, 2024 Subjective tele overnight wnl patient with mild R flank pain but improved from admission no abd pain no nausea/emesis eating well denies any new complaints Review of Systems Review of Systems: gen - no fevers or chills pulm - no cough, no dyspnea Physical Exam Physical Exam: gen - NAD, nontoxic mouth - MMM neck - no JVD heart - RRR, s1 s2, no murmur lungs - CTA b/l back - minimal CVA tenderness on right to palpation abd - soft NT ND BS+; no HSM ext - no edema, pulses 2+ b/l Results & Data Results & Data Vital Signs (Past 12 Hours) Vital Signs Temp Pulse Pulse Resp BP Pulse Ox O2 Del Method 06/25/24 07:54 37.1 C 70 16 110/80 96 Room Air 06/25/24 07:16 56 L 06/25/24 03:58 36.7 C 58 L 18 108/69 96 Room Air 06/24/24 23:55 36.9 C 74 18 104/67 96 Room Air Laboratory Results Laboratory Results - last 24 hr 06/25/24 06/25/24 06:36 07:43 WBC Cancelled 7.00 RBC Cancelled 3.66 L Hgb Cancelled 11.0 L Hct Cancelled 35.6 L MCV Cancelled 97.3 D MCH Cancelled 30.1 MCHC Cancelled 30.9 L RDW Std Deviation Cancelled 47.9 H RDW Coeff of Deisy Cancelled 13.3 Plt Count Cancelled 259 MPV Cancelled 10.5 Immature Gran % (Auto) Cancelled 1.3 Neut % (Auto) Cancelled 62.0 Lymph % (Auto) Cancelled 27.0 [place] % (Auto) Cancelled 7.4 Eos % (Auto) Cancelled 1.7 Baso % (Auto) Cancelled 0.6 Neut # (Auto) Cancelled 4.34 Lymph # (Auto) Cancelled 1.89 [place] # (Auto) Cancelled 0.52 Eos # (Auto) Cancelled 0.12 Baso # (Auto) Cancelled 0.04 Immature Gran # (Auto) Cancelled 0.09 Absolute Nucleated RBC Cancelled Nucleated RBC % (auto) Cancelled Neutrophils % (Manual) Cancelled Band Neutrophils % Cancelled Lymphocytes % (Manual) Cancelled Prolymphocyte % Cancelled Reactive Lymphs % (Man) Cancelled Monocytes % (Manual) Cancelled Eosinophils % (Manual) Cancelled Basophils % (Manual) Cancelled Metamyelocytes % (Man) Cancelled Myelocytes % (Man) Cancelled Promyelocytes % (Man) Cancelled Blast Cells % (Manual) Cancelled Plasma Cell % (Manual) Cancelled Other Cells % Cancelled Nucleated RBC % Cancelled Neutrophils # (Manual) Cancelled Band Neutrophils # Cancelled Total Absolute Neuts Cancelled Lymphocytes # (Manual) Cancelled Prolymphocyte # Cancelled Reactive Lymphs # Cancelled Total Abs Lymphocytes Cancelled Monocytes # (Manual) Cancelled Eosinophils # (Manual) Cancelled Basophils # (Manual) Cancelled Metamyelocytes # (Man) Cancelled Myelocytes # (Manual) Cancelled Promyelocytes # (Man) Cancelled Blast Cells # (Man) Cancelled Plasma Cell # (Manual) Cancelled Other Cells # Cancelled Nucleated RBCs # (Man) Cancelled Hypersegmented Neuts Cancelled Hyposegmented Neuts Cancelled Hypogranular Neuts Cancelled Large Granular Lymphs Cancelled # Lrg Granular Lymphs Cancelled Hairy Cells Cancelled Smudge Cells Cancelled Toxic Granulation Cancelled Toxic Vacuolation Cancelled Dohle Bodies Cancelled Olivia Rods Cancelled Platelet Estimate Cancelled Hypogranular Platelets Cancelled Giant Platelets Cancelled Platelet Satelliting Cancelled RBC Morphology Cancelled Polychromasia Cancelled Hypochromasia Cancelled Poikilocytosis Cancelled Basophilic Stippling Cancelled Anisocytosis Cancelled Microcytosis Cancelled Macrocytosis Cancelled Spherocytes Cancelled Pappenheimer Bodies Cancelled Sickle Cells Cancelled Target Cells Cancelled Tear Drop Cells Cancelled Ovalocytes Cancelled Stomatocytes Cancelled Mantilla-Zumbrota Bodies Cancelled Echinocytes Cancelled Acanthocytes (Spur) Cancelled Rouleaux Cancelled RBC Agglutinates Cancelled Schistocytes Cancelled Sezary Cell Cancelled PT 10.6 INR 1.0 APTT 24 PTT Ratio 0.9 Sodium 142 Potassium 4.4 D Chloride 112 H Carbon Dioxide 23 Anion Gap 7 BUN 12 Creatinine 0.85 Est Cr Clr Drug Dosing 95.8 eGFR 101.15 BUN/Creatinine Ratio 14.1 Glucose 100 H Calcium 8.5 L Magnesium 2.2 Total Bilirubin 0.2 AST 11 L ALT 11 Alkaline Phosphatase 50 Total Protein 7.0 Albumin 3.0 L Globulin 4.0 Albumin/Globulin Ratio 0.8 L Blood Parasites ID Cancelled Diagnostic Findings Microbiology 06/24/24 01:54 Urine,Clean Catch Urine Culture - Preliminary Escherichia coli 06/24/24 04:33 Blood Aerobic Blood Culture - Preliminary No growth in Aerobic bottle after 24 hours. 06/24/24 04:33 Blood Anaerobic Blood Culture - Preliminary No growth in Anaerobic bottle after 24 hours. 06/24/24 04:43 Blood Aerobic Blood Culture - Preliminary No growth in Aerobic bottle after 24 hours. 06/24/24 04:43 Blood Anaerobic Blood Culture - Preliminary No growth in Anaerobic bottle after 24 hours. PG Care Time/CCT Total # of Minutes Spent Total Time Spent with Patient: Total time spent is greater than 50% in coordination of care (as documented) at patient's floor/unit and/or counseling patient: Coding Level of Care Code 95255 SUB INP/OBS CARE 2/35MIN Diagnoses Pyelonephritis N12 Ascites R18.8 Hepatosplenomegaly R16.2 Adnexal cyst N94.9 Hypokalemia E87.6 Dehydration E86.0
[2024-06-25] MEDS ORDERED: KETOROLAC 30 MG/ML VIAL IV PRN (13:06)
[2024-06-25] MEDS ORDERED: ACETAMINOPHEN 500 MG TAB PO PRN (13:06)
[2024-06-25 19:34] VITALS: RESP 16; TEMP 97.9; O2SAT 97
[2024-06-26 06:39] LABS: BUN Creatinine Ratio 20.2 (10-20); Calcium 8.8 mg/dl (8.6-10.3); Creatinine Clr Calc Pharmacy 96.9 ml/min; Potassium 4.3 mmol/L (3.5-5.1)
[2024-06-26 07:39] VITALS: BP 106/63; PULSE 52
--- NOTE | 2024-06-26 08:49 | Urology Progress Note ---
Date of Service June 26, 2024 Assessment & Plan (1) Pyelonephritis: Plan: Urine culture now demonstrating pansensitive E. coli. Should have appropriate coverage with ciprofloxacin. Would recommend treatment with 7 to 10 days of this antibiotic. If she continues to do well, I think it would be reasonable to discharge her home on oral antibiotics. No plan for urologic intervention at this time. Admission and Anticipated Discharge Date Admission Date: June 24, 2024 Subjective No fevers overnight Kidney function remains normal this morning (creatinine 0.84) Blood cultures negative at 48 hours. Urine culture with E. coli that is pansensitive, has been switched to ciprofloxacin Physical Exam Physical Exam: Well-appearing, NAD Results & Data Vital Signs (Past 12 Hours) Vital Signs Temp Pulse Resp BP Pulse Ox O2 Del Method 06/26/24 08:10 Room Air 06/26/24 07:37 36.6 C 52 L 16 106/63 97 Room Air PG Care Time/CCT Total # of Minutes Spent Total Time Spent with Patient: Total time spent is greater than 50% in coordination of care (as documented) at patient's floor/unit and/or counseling patient: Coding Level of Care Code 44841 SUB INP/OBS CARE 25MIN Diagnoses Pyelonephritis N12
[2024-06-26] MEDS: CIPROFLOXACIN 500 MG TAB PO SCH (09:53)
--- NOTE | 2024-06-26 12:05 | Discharge Summary ---
Discharge Summary Date of Service June 26, 2024 Principal Dx & Hospital Course #1 = Principal Diagnosis (1) Pyelonephritis: right-sided 2nd to e.coli based on urine cx results cont rocephin tylenol/toradol prn pain blood cx's neg to date clinically doing well & stable appreciate urology assistance (2) Ascites: mild on CT nothing apparent clinically on physical exam likely reactive (3) Hepatosplenomegaly: etiology uncertain most likely is due to a viral process EBV, CMV, etc are pending I cannot feel any enlarged spleen or liver on exam today f/u on viral serologies (4) Adnexal cyst: left pelvic u/s shows simple cyst features f/u as outpatient (5) Hypokalemia: replaced resolved (6) Dehydration: resolved stop IV fluids Plan home tomorrow if blood cx's negative? can d/c telemetry Admission HPI Per Admitting Provider The patient is a 18-year-old female [employer] with past medical history including left humerus surgery about 6 years ago, who presents to the emergency department with 1 week of symptoms as noted above that worsened over the past 2 days. She denies any history of urinary tract infections that required antibiotics. She denies any recent travels or sick exposures. She does not go hiking. She has not had any drug use. Discharge Exam gen - NAD, nontoxic mouth - MMM neck - no JVD heart - RRR, s1 s2, no murmur lungs - CTA b/l back - minimal CVA tenderness on right to palpation abd - soft NT ND BS+; no HSM ext - no edema, pulses 2+ b/l Discharge Plan Discharge Items Patient Disposition: Home - Self-Care Reason For Visit: Pyelonephritis Discharge Diagnosis: 1. right-sided pyelonephritis (kidney infection) 2. enlarged liver & spleen - exact cause uncertain; possibly due to undetermined virus or other etiology 3. left-sided ovarian cyst 4. left-sided kidney stone, 5mm in size - no treatment needed at this time Condition on Discharge: Good Activity: As commented below Activity Comment: light activities only until you see [facility] Lifting: No more than 25 pounds Sexual Activity: Wait until after follow-up appointment Exercise/Sports: Wait until after follow-up appointment Non-emergency contact: Primary Care Provider and Urologist Call non-emergency contact if: you have any medication questions, your symptoms worsen, your pain is not controlled, your pain is worsening and you have a fever Follow-up/Referrals: [facility] [Provider Group] (please contact [facility] at to schedule a follow-up appointment this week. Ideally you are seen on Thursday prior to . ) Shanae Dodge CRNP [Nurse Practitioner] - (we will obtain a follow-up appointment with [facility] and call you with appointment information. ) Diet: Regular Addtl Attending Provider Instructions: Sena, You were hospitalized due to having right-sided kidney infection - also known as pyelonephritis (see handout). Your urinary tract infection/kidney infection was due to e.coli bacteria, a common cause of urinary tract infections in people of all ages. You improved with IV antibiotics. Blood cultures were negative - this means that your blood stream is free of infection. You were seen by [facility]. They advised antibiotics and supportive care for your infection. They would like to see you in follow-up in a few weeks to check on your well- being. In addition, the CT scan of your abdomen/pelvis showed a few other incidental findings includin. mildly enlarged spleen & liver. Most common cause of this would be due to a recent viral infection (B[place], Boulder-like viruses, COVID, etc). We have sent off various viral studies and these will return in about a week. I cannot feel your spleen on examination but before returning to exercise & other activities please get rechecked at [facility] on Thursday, 06/29. 2. left-sided ovarian cyst - pelvic ultrasound showed that the cyst appears "simple." Simple ovarian cysts generally do not require treatment. However, [facility] may recommend a follow-up ultrasound in the future to ensure the cyst has not gotten larger. 3. there is a 5mm kidney stone on the left that is minding its own business and not causing any problems at the present time. However, you could pass that stone at any time in the future. To prevent the development of more kidney stones be sure to stay well-hydrated day-to-day by drinking plenty of water, drinking plenty of lemonade or Crystal Lite, and limiting caffeinated beverages (soda, coffee, etc). Recommendations - 1. ciprofloxacin 500mg twice daily x 10 days, first dose tonight. This is your antibiotic. Most common side effect is diarrhea. 2. consider taking an zgbx-gzs-kbpfxix probiotic supplement and/or eating a serving or two of yogurt each day - this may prevent diarrhea. 3. see handout on urinary infections. They list many preventive measures that help reduce the risk of getting more UTIs. If you are sexually active be sure to void immediately after intercourse to flush your urinary tract. Some women take cranberry supplements or drink cranberry juice each day for UTI prevention. 4. follow-up - see separate section. 5. for any aches/pains you can take vtue-jzo-zzxvjaa tylenol 1000mg every 8 hours as needed, maximum 3000mg in 24 hours. 6. no alcohol while on the antibiotics. 7. avoid weight lifting and contact sports until you see [facility]. Plan to take it easy for a few days and get good rest. Return to [facility] if - * you have fever over 100 degrees * you have worsening back pain, abdominal pain, or flank pain * you develop severe diarrhea (3 or more loose stools per 24 hours) * you have nausea and/or vomiting * any other concerns It was our pleasure to care for you! -Dr Shi Pending Studies at Discharge: Yes Studies:: Viral studies (Boulder testing, etc) Stand-Alone Forms: My [facility], Smoking Cessation Medications and DC Order Prescriptions: New ciprofloxacin HCl 500 mg Tablet 500 mg PO BID 10 Days Qty: 20 0RF Discharge Orders: Discharge Order (Routine); Ordered 06/26/24 Ordered By: Alex Tidwell/Other Patient Handouts: Understanding Kidney Stones, ED Kidney Infection (Adult Female) Admission Data Admit Date/Time: 06/24/24 05:30 Attending Provider: Davide Gutierrez Admit Provider: Davide Gutierrez Primary Care Provider: PCP,NO Other Providers: Cathy Baxter; Tana Elliott; Sybil Lechuga; Alison Lazaro; Idania Blevins; Ashley Patel; Davide Gutierrez Hospital Stay Data Consultations 06/24/24 04:33 ED Decision to Admit Stat 06/24/24 09:09 Consult Infectious Diseases Routine Diagnostic Imagining Performed 06/24/24 02:15 CT abd pelvis IV con only Stat 06/24/24 04:43 US pelvic complete Stat Pending Results Patient Have Any Pending Studies at Discharge: Yes Discharge Instructions Given to Patient (Per Discharging Provider) Sena, You were hospitalized due to having right-sided kidney infection - also known as pyelonephritis (see handout). Your urinary tract infection/kidney infection was due to e.coli bacteria, a common cause of urinary tract infections in people of all ages. You improved with IV antibiotics. Blood cultures were negative - this means that your blood stream is free of infection. You were seen by [facility]. They advised antibiotics and supportive care for your infection. They would like to see you in follow-up in a few weeks to check on your well- being. In addition, the CT scan of your abdomen/pelvis showed a few other incidental findings includin. mildly enlarged spleen & liver. Most common cause of this would be due to a recent viral infection ([place], Boulder-like viruses, COVID, etc). We have sent off various viral studies and these will return in about a week. I cannot feel your spleen on examination but before returning to exercise & other activities please get rechecked at [facility] on Thursday, 06/29. 2. left-sided ovarian cyst - pelvic ultrasound showed that the cyst appears "simple." Simple ovarian cysts generally do not require treatment. However, [facility] may recommend a follow-up ultrasound in the future to ensure the cyst has not gotten larger. 3. there is a 5mm kidney stone on the left that is minding its own business and not causing any problems at the present time. However, you could pass that stone at any time in the future. To prevent the development of more kidney stones be sure to stay well-hydrated day-to-day by drinking plenty of water, drinking plenty of lemonade or Crystal Lite, and limiting caffeinated beverages (soda, coffee, etc). Recommendations - 1. ciprofloxacin 500mg twice daily x 10 days, first dose tonight. This is your antibiotic. Most common side effect is diarrhea. 2. consider taking an zqsd-xml-sgmfkud probiotic supplement and/or eating a serving or two of yogurt each day - this may prevent diarrhea. 3. see handout on urinary infections. They list many preventive measures that help reduce the risk of getting more UTIs. If you are sexually active be sure to void immediately after intercourse to flush your urinary tract. Some women take cranberry supplements or drink cranberry juice each day for UTI prevention. 4. follow-up - see separate section. 5. for any aches/pains you can take entj-zmz-uhjzudn tylenol 1000mg every 8 hours as needed, maximum 3000mg in 24 hours. 6. no alcohol while on the antibiotics. 7. avoid weight lifting and contact sports until you see [facility]. Plan to take it easy for a few days and get good rest. Return to [facility] if - * you have fever over 100 degrees * you have worsening back pain, abdominal pain, or flank pain * you develop severe diarrhea (3 or more loose stools per 24 hours) * you have nausea and/or vomiting * any other concerns It was our pleasure to care for you! -Dr Shi Coding Diagnoses Pyelonephritis N12 Ascites R18.8 Hepatosplenomegaly R16.2 Adnexal cyst N94.9 Hypokalemia E87.6 Dehydration E86.0
[2024-06-26 15:22] LABS: Quantiferon Mitogen-NIL 7.25 IU/mL; Quantiferon NIL 0.03 IU/mL; Quantiferon TB Gold Plus NEGATIVE (NEGATIVE); Quantiferon TB2-NIL 0.01 IU/mL
[2024-06-27 13:51] LABS: CMV IgG Antibody <0.60 U/mL; CMV IgM Antibody <30.00 AU/mL
[2024-06-27 14:32] LABS: CMV DNA PCR Qual NOT DETECTED; Source Whole Blood
[2024-06-27 15:03] LABS: Epstein Barr Virus Early Ag Ab <9.00 U/mL
[2024-06-27 16:08] LABS: Hepatitis A Antibody IgM NON-REACTIVE (NON-REACTIVE); Hepatitis B Core Antibody IgM NON-REACTIVE (NON-REACTIVE)
== END 2024-06-26 13:06 | disposition home or self-care (01) | DRG 690 ==
LOC: SUATTDRO → ED 01:13 → EDINP 05:30 → 2N 11:55 → 3W 06-25 19:13